=== PATIENT | male | born 1995 | race Caucasian/White ===

== ENCOUNTER 2018-03-20 16:00 | Outpatient (RCR) | payer BC, SELFPAY | END 2018-04-03 15:04 | disposition home or self-care (01) | LOC: PT 16:00 | PROVIDERS: Visit Provider Physician Assistant | DX: S46.912A Strain of unspecified muscle, fascia and tendon at shoulder and upper arm level, left arm, initial encounter (principal) | CPT/HCPCS: 97110; 97163 ==